=== PATIENT | female | born 1960 | race Caucasian/White ===

== ENCOUNTER 2017-02-06 14:24 | Inpatient (IN) | payer MEDICAID, OTHER ==
[~2017-02-06] VITALS: Ht 167.6 cm; Wt 155.1 kg
[2017-02-06] MEDS ORDERED: SERT100T PO (14:47)
[2017-02-06] MEDS ORDERED: TRAZ100T15 PO (14:47)
[2017-02-06] MEDS ORDERED: GABA600T2 PO (14:47)
[2017-02-06] MEDS ORDERED: SERT100T5 PO (14:47)
[2017-02-06] MEDS ORDERED: LORA10TA62 PO (14:47)
[2017-02-06] MEDS ORDERED: LOSA50TA6 PO (14:47)
[2017-02-06] MEDS ORDERED: SPIR25TA3 PO (14:47)
[2017-02-06] MEDS ORDERED: DILT240C77 PO (14:47)
[2017-02-06] MEDS ORDERED: CALC1CAP8 PO (14:47)
[2017-02-06 15:14] LABS: HEMOGLOBIN 12.8 g/dL (11.7-16.4); WHITE BLOOD COUNT 9.2 x10^3/uL (3.4-10)
[2017-02-06 15:21] LABS: ASPARTATE AMINO TRANSFERASE 56 U/L (15-37); BLOOD UREA NITROGEN 35 mg/dL (7-18)
[2017-02-06 15:25] LABS: ACETAMINOPHEN < 2 mcg/mL (10-30)
[2017-02-06 15:29] LABS: IS PT STATUS REG ER OR PRE ER? YES
[2017-02-06] MEDS ORDERED: ASPIRIN 325 MG TABLET PO ONE (16:00)
[2017-02-06] MEDS ORDERED: NALOXONE 1 MG/ML, 2ML IM PRN (16:00)
[2017-02-06] MEDS ORDERED: NALOXONE 0.4 MG/ML, 1ML IVPush PRN (17:00)
[2017-02-06] MEDS ORDERED: ONDANSETRON 2MG/ML, 2ML IVPush PRN (17:00)
[2017-02-06] MEDS ORDERED: LABETALOL 5MG/ML, 20ML IVPush PRN (17:00)
[2017-02-06] MEDS ORDERED: NITROGLYCERIN SINGLE TAB 0.4 MG SL PRN (17:00)
[2017-02-06] MEDS: NICOTINE 14MG/24 HR PATCH.TD24 TD SCH (17:00)
[2017-02-06] MEDS ORDERED: ASPIRIN 81 MG TABLET CHEW ONE (17:31)
[2017-02-06 17:56] LABS: IS PT STATUS REG ER OR PRE ER? NO
[2017-02-06 18:00] VITALS: BP 96/69
[2017-02-06] MEDS: SODIUM CHLORIDE 0.9% 1,000 ML IV SCH (18:33)
[2017-02-06 19:13] VITALS: BP 108/77
[2017-02-06 22:38] VITALS: BP 96/69
[2017-02-06 23:01] LABS: IS PT STATUS REG ER OR PRE ER? NO
[2017-02-06] MEDS: ACETAMINOPHEN 325 MG TABLET PO PRN (23:26)
[2017-02-07] MEDS: SODIUM CHLORIDE 0.9% 1,000 ML IV SCH ×4 (01:17→22:49)
[2017-02-07 01:57] VITALS: BP 104/70
[2017-02-07 05:46] LABS: HEMATOCRIT 35.6 % (34.6-47.8); HEMOGLOBIN 11.9 g/dL (11.7-16.4); WHITE BLOOD COUNT 6.2 x10^3/uL (3.4-10)
[2017-02-07 06:06] LABS: ASPARTATE AMINO TRANSFERASE 92 U/L (15-37); BLOOD UREA NITROGEN 35 mg/dL (7-18)
[2017-02-07 06:40] LABS: IS PT STATUS REG ER OR PRE ER? NO
[2017-02-07] MEDS: ASPIRIN 81 MG TABLET EC PO SCH (06:40)
[2017-02-07 06:59] LABS: HIV 1&2 ANTIBODY SCREEN Nonreactive (Nonreactive); HIV-1 p24 ANTIGEN Nonreactive (Nonreactive)
[2017-02-07 07:15] VITALS: BP 96/83
[2017-02-07] MEDS: ACETAMINOPHEN 325 MG TABLET PO PRN ×2 (08:28→12:45)
[2017-02-07] MEDS: NICOTINE 14MG/24 HR PATCH.TD24 TD SCH (08:29)
[2017-02-07 14:12] VITALS: BP 119/83
[2017-02-07] MEDS ORDERED: SUMATRIPTAN 50 MG TABLET PO ONE (14:30)
[2017-02-07 15:02] LABS: TOTAL IRON BINDING CAPACITY 319 mcg/dL (250-450)
[2017-02-07 15:06] LABS: FERRITIN 246.7 ng/mL (8-252); IS PT STATUS REG ER OR PRE ER? YES
[2017-02-07 18:45] VITALS: BP 120/82
[2017-02-07 19:26] LABS: IS PT STATUS REG ER OR PRE ER? NO
[2017-02-07] MEDS ORDERED: TRAZODONE 50MG TABLET PO ONE (22:00)
[2017-02-08] MEDS: ACETAMINOPHEN 325 MG TABLET PO PRN ×2 (01:15→20:31)
[2017-02-08 02:21] VITALS: BP 116/80
[2017-02-08 05:50] LABS: HEMATOCRIT 35.6 % (34.6-47.8); HEMOGLOBIN 11.8 g/dL (11.7-16.4); WHITE BLOOD COUNT 4.2 x10^3/uL (3.4-10)
[2017-02-08] MEDS: ASPIRIN 81 MG TABLET EC PO SCH (05:58)
[2017-02-08] MEDS: SODIUM CHLORIDE 0.9% 1,000 ML IV SCH (05:58)
[2017-02-08 06:08] LABS: ASPARTATE AMINO TRANSFERASE 53 U/L (15-37); BLOOD UREA NITROGEN 21 mg/dL (7-18)
[2017-02-08] MEDS: ONDANSETRON ODT 4 MG PO PRN ×2 (06:14→20:30)
[2017-02-08 08:05] VITALS: BP 138/87
[2017-02-08] MEDS: SUMATRIPTAN 50 MG TABLET PO PRN (08:53)
[2017-02-08] MEDS: LOSARTAN 50MG TABLET PO SCH (12:51)
[2017-02-08] MEDS: FERROUS SULFATE 325 MG TABLET PO SCH (18:00)
[2017-02-08] MEDS: NICOTINE 14MG/24 HR PATCH.TD24 TD SCH (18:01)
[2017-02-08 19:08] VITALS: BP 148/88
[2017-02-09] MEDS: ACETAMINOPHEN 325 MG TABLET PO PRN ×3 (01:55→17:37)
[2017-02-09 01:59] VITALS: BP 134/83
[2017-02-09 05:18] LABS: HEMATOCRIT 35.3 % (34.6-47.8); HEMOGLOBIN 11.6 g/dL (11.7-16.4); WHITE BLOOD COUNT 3.7 x10^3/uL (3.4-10)
[2017-02-09 05:24] LABS: BLOOD UREA NITROGEN 16 mg/dL (7-18)
[2017-02-09] MEDS: ASPIRIN 81 MG TABLET EC PO SCH (05:35)
[2017-02-09] MEDS: SUMATRIPTAN 50 MG TABLET PO PRN (08:06)
[2017-02-09] MEDS: ONDANSETRON ODT 4 MG PO PRN ×3 (08:06→17:37)
[2017-02-09] MEDS: LOSARTAN 50MG TABLET PO SCH (08:07)
[2017-02-09] MEDS: FERROUS SULFATE 325 MG TABLET PO SCH ×2 (08:07→17:38)
[2017-02-09] MEDS: CHOLECALCIFEROL 1,000 UNIT TABLET PO SCH (08:07)
[2017-02-09 08:43] VITALS: BP 138/91
[2017-02-09] MEDS: LORazepam 0.5MG TABLET PO PRN ×2 (12:18→19:52)
[2017-02-09] MEDS: NICOTINE 14MG/24 HR PATCH.TD24 TD SCH (12:18)
[2017-02-09 13:45] VITALS: BP 159/94
[2017-02-09] MEDS ORDERED: KETOROLAC 30 MG/1 ML ONE (15:41)
[2017-02-09] MEDS ORDERED: KETOROLAC 30 MG/1 ML IVPush SCH (16:00)
[2017-02-09] MEDS ORDERED: KETOROLAC 30 MG/1 ML IVPush PRN (16:00)
[2017-02-09] MEDS: KETOROLAC 30 MG/1 ML IM PRN (18:26)
[2017-02-09 19:42] VITALS: BP 128/84
[2017-02-10 01:22] VITALS: BP 146/88
[2017-02-10] MEDS: ACETAMINOPHEN 325 MG TABLET PO PRN ×2 (05:32→17:13)
[2017-02-10] MEDS: LORazepam 0.5MG TABLET PO PRN ×3 (06:32→20:11)
[2017-02-10] MEDS: ASPIRIN 81 MG TABLET EC PO SCH (06:32)
[2017-02-10] MEDS: LOSARTAN 50MG TABLET PO SCH (08:13)
[2017-02-10] MEDS: CHOLECALCIFEROL 1,000 UNIT TABLET PO SCH (08:13)
[2017-02-10] MEDS: FERROUS SULFATE 325 MG TABLET PO SCH ×2 (08:13→17:13)
[2017-02-10] MEDS: SUMATRIPTAN 50 MG TABLET PO PRN (08:17)
[2017-02-10 08:18] VITALS: BP 137/86
[2017-02-10] MEDS: KETOROLAC 30 MG/1 ML IM PRN ×2 (11:49→18:10)
[2017-02-10] MEDS: ONDANSETRON ODT 4 MG PO PRN (17:13)
[2017-02-10] MEDS: NICOTINE 14MG/24 HR PATCH.TD24 TD SCH (17:14)
[2017-02-10 17:20] VITALS: BP 127/81
[2017-02-10] MEDS ORDERED: NITROGLYCERIN SINGLE TAB 0.4 MG SL PRN (20:00)
[2017-02-10] MEDS ORDERED: LABETALOL 5MG/ML, 20ML IVPush PRN (20:00)
[2017-02-10 20:15] VITALS: BP 144/85
[2017-02-11 02:00] VITALS: BP 125/78
[2017-02-11] MEDS: ASPIRIN 81 MG TABLET EC PO SCH (06:00)
[2017-02-11] MEDS: FERROUS SULFATE 325 MG TABLET PO SCH ×2 (08:57→17:21)
[2017-02-11] MEDS: CHOLECALCIFEROL 1,000 UNIT TABLET PO SCH (08:57)
[2017-02-11] MEDS: LOSARTAN 50MG TABLET PO SCH (08:57)
[2017-02-11 09:01] VITALS: BP 133/90
[2017-02-11] MEDS: LORazepam 0.5MG TABLET PO PRN ×3 (09:08→21:25)
[2017-02-11] MEDS: KETOROLAC 30 MG/1 ML IM PRN (11:00)
[2017-02-11] MEDS: ONDANSETRON ODT 4 MG PO PRN (14:01)
[2017-02-11 15:28] VITALS: BP 167/88
[2017-02-11] MEDS: NICOTINE 14MG/24 HR PATCH.TD24 TD SCH (17:17)
[2017-02-11] MEDS: ACETAMINOPHEN 325 MG TABLET PO PRN (17:22)
[2017-02-11 19:30] VITALS: BP 141/84
[2017-02-12 01:20] VITALS: BP 161/87
[2017-02-12] MEDS: ASPIRIN 81 MG TABLET EC PO SCH (04:51)
[2017-02-12] MEDS: ACETAMINOPHEN 325 MG TABLET PO PRN (04:52)
[2017-02-12 07:13] VITALS: BP 151/101
[2017-02-12] MEDS: ONDANSETRON ODT 4 MG PO PRN (07:29)
[2017-02-12] MEDS: LORazepam 0.5MG TABLET PO PRN ×2 (07:29→14:04)
[2017-02-12] MEDS: CHOLECALCIFEROL 1,000 UNIT TABLET PO SCH (09:01)
[2017-02-12] MEDS: LOSARTAN 50MG TABLET PO SCH (09:01)
[2017-02-12] MEDS: FERROUS SULFATE 325 MG TABLET PO SCH (09:01)
[2017-02-12 15:24] VITALS: BP 161/109
== END 2017-02-12 15:57 | disposition home or self-care (01) | DRG 682 ==
LOC: ED 15:19 → EDIP 15:50 → 5SO 17:49 → DCLOUNGE 02-12 15:40
PROVIDERS: ADMIT Family Medicine; ATTEND Hospitalist
DX: N17.9 Acute kidney failure, unspecified (principal); G92 Toxic encephalopathy; D68.9 Coagulation defect, unspecified; I24.8 Other forms of acute ischemic heart disease; Z68.43 Body mass index [BMI] 50.0-59.9, adult; D69.6 Thrombocytopenia, unspecified; E83.51 Hypocalcemia; E66.01 Morbid (severe) obesity due to excess calories; B19.20 Unspecified viral hepatitis C without hepatic coma; D64.9 Anemia, unspecified; E86.9 Volume depletion, unspecified; F17.210 Nicotine dependence, cigarettes, uncomplicated; G62.9 Polyneuropathy, unspecified; G89.29 Other chronic pain; I12.9 Hypertensive chronic kidney disease with stage 1 through stage 4 chronic kidney disease, or unspecified chronic kidney disease; I87.2 Venous insufficiency (chronic) (peripheral); I87.8 Other specified disorders of veins; J44.9 Chronic obstructive pulmonary disease, unspecified; N18.9 Chronic kidney disease, unspecified; R09.02 Hypoxemia; Z79.82 Long term (current) use of aspirin; Z79.891 Long term (current) use of opiate analgesic; Z79.899 Other long term (current) drug therapy; F32.9 Major depressive disorder, single episode, unspecified
CPT/HCPCS: 36415; 71010; 80053; 80061; 80069; 80074; 80307; 80329; 81001; 82140; 82306; 82550; 82728; 83036; 83540; 83550; 83735; 83970; 84100; 84484; 84550; 85025; 85610; 86703; 87086; 87324; 87521; 87899; 93005; 93306; 99285; J1885; J2405; Q0162; G0435; G0480; J7030